=== PATIENT | male | born 1985 | race Caucasian/White ===

== ENCOUNTER 2021-09-28 07:50 | Emergency (ER) | payer BC ==
[2021-09-28 08:51] LABS: HEMOGLOBIN 15.2 gm/dl (14.0-17.5); RED BLOOD COUNT 4.87 M/UL (4.20-5.50); WHITE BLOOD COUNT 3.8 K/UL (4.5-11.0)
[2021-09-28 09:13] LABS: BUN/CREATININE RATIO 15 (0-10)
== END 2021-09-28 15:23 | disposition home or self-care (01) ==
LOC: ER1 07:50
PROVIDERS: Emergency Medicine
DX: U07.1 COVID-19 (principal); R55 Syncope and collapse
CPT/HCPCS: 0240U; 70450; 71045; 80053; 81001; 82550; 82553; 83874; 84484; 85025; 85379; 93005; 99284; J7030; Q9967